=== PATIENT | female | born 2000 | race Two or more races ===

== ENCOUNTER 2020-10-19 16:40 | Outpatient (CLI) | payer MEDICAID ==
[~2020-10-19] VITALS: Ht 160 cm; Wt 60.9 kg
[2020-10-19 17:29] LABS: BASOPHILS % (AUTO) 0 % (0-1); EOSINOPHILS % (AUTO) 1 % (1-7); LYMPHOCYTES % (AUTO) 15 % (22-44); MEAN CORPUSCULAR HEMOGLOBIN 29.3 pg (27.0-34.8); MEAN CORPUSCULAR HGB CONC 33.9 g/dL (32.4-35.8); MEAN PLATELET VOLUME 10.4 fL (7.4-10.4); MONOCYTES % (AUTO) 6 % (2-9); NEUTROPHILS % (AUTO) 78 % (42-75); PLATELET COUNT 143 x10^3/uL (130-400); RED BLOOD COUNT 3.54 x10^6/uL (3.82-5.3); RED CELL DISTRIBUTION WIDTH 13.5 % (9.6-15.2)
[2020-10-19] MEDS ORDERED: LACTATED RINGERS 1,000 ML IVBOLUS ONE (17:30)
[2020-10-19 17:31] LABS: MD NO
[2020-10-19 17:34] VITALS: BP 100/57
[2020-10-19 17:39] LABS: ALBUMIN 2.8 g/dL (3.4-5.0); ANION GAP 6 mmol/L (5-15); CHLORIDE 107 mmol/L (98-107)
[2020-10-19 17:42] LABS: ALANINE AMINOTRANSFERASE 18 U/L (12-78); ALKALINE PHOSPHATASE 90 U/L (45-117); BILIRUBIN,TOTAL 0.4 mg/dL (0.2-1.0); CREATININE 0.34 mg/dL (0.55-1.02); TOTAL PROTEIN 6.8 g/dL (6.4-8.2)
[2020-10-19 18:00] LABS: MICROSCOPIC INDICATED
[2020-10-19] MEDS ORDERED: LACTATED RINGERS 1,000 ML IV SCH (18:30)
[2020-10-19] MEDS ORDERED: PREN1TAB10 PO (18:39)
[2020-10-19] MEDS ORDERED: ASPI-963 PO (18:39)
[2020-10-19] MEDS ORDERED: FERR324T18 PO (18:39)
== END 2020-10-19 19:15 | disposition home or self-care (01) ==
LOC: LDOP 16:40
PROVIDERS: ATTEND Obstetrics & Gynecology
DX: O26.892 Other specified pregnancy related conditions, second trimester (principal); R19.7 Diarrhea, unspecified; R10.9 Unspecified abdominal pain; Z3A.26 26 weeks gestation of pregnancy
CPT/HCPCS: 36415; 59025; 80053; 81001; 85025; 87086; 96360; 96361; J7120

== ENCOUNTER 2020-11-26 09:23 | Emergency (ER) | payer BC, MEDICAID ==
[~2020-11-26] VITALS: Ht 157.5 cm; Wt 63.1 kg
[~2020-11-26 09:23] MED LIST: ASPI-963 PO; FERR324T18 PO; PREN1TAB10 PO
[2020-11-26 09:43] VITALS: BP 100/53
--- NOTE | 2020-11-26 11:59 | NUR ---
science job titles: Pt ambulatory to room from lobby at this time.
[2020-11-26 12:37] LABS: ALBUMIN 2.8 g/dL (3.4-5.0); ANION GAP 7 mmol/L (5-15); BASOPHILS % (AUTO) 1 % (0-1); CALCIUM 8.5 mg/dL (8.5-10.1); CHLORIDE 109 mmol/L (98-107); CREATININE 0.33 mg/dL (0.55-1.02); EOSINOPHILS % (AUTO) 1 % (1-7); LYMPHOCYTES % (AUTO) 14 % (22-44); MEAN CORPUSCULAR HEMOGLOBIN 28.4 pg (27.0-34.8); MEAN CORPUSCULAR HGB CONC 32.9 g/dL (32.4-35.8); MEAN PLATELET VOLUME 11.3 fL (7.4-10.4); MONOCYTES % (AUTO) 6 % (2-9); NEUTROPHILS % (AUTO) 80 % (42-75); PLATELET COUNT 169 x10^3/uL (130-400); RED BLOOD COUNT 3.74 x10^6/uL (3.82-5.3); RED CELL DISTRIBUTION WIDTH 13.5 % (9.6-15.2)
--- NOTE | 2020-11-26 13:23 | NUR ---
This RN called L&D for FHT assessment at approx 1230
--- NOTE | 2020-11-26 13:24 | NUR ---
Awaiting FHT assessment from L&D. Then pt to be d/c'd. Report to TULIO Lopez, to assume full care.
--- NOTE | 2020-11-26 13:50 | NUR ---
Task rn: L/d nurse to bedside for heart tones: average HR 145 ERP made aware Leading edge of cellulitus encircled/times with skin marker to d/c shortly
== END 2020-11-26 14:30 | disposition home or self-care (01) ==
LOC: ED 13:45
DX: O26.893 Other specified pregnancy related conditions, third trimester (principal); L03.113 Cellulitis of right upper limb; Z3A.32 32 weeks gestation of pregnancy
CPT/HCPCS: 36415; 80048; 82040; 85025; 99283

== ENCOUNTER 2020-11-26 21:21 | Emergency (ER) | payer MEDICAID ==
[~2020-11-26] VITALS: Ht 160 cm; Wt 63.0 kg
--- NOTE | 2020-11-26 21:44 | NUR ---
CC OF WORSENING INFECTION, PT BELIEVES TO BE FROM SPIDER BITE. PT SEEN HERE THIS AM, REDNESS STARTED ON WRIST AND SPREAD UP ARM IN A LINE. OUTLINED DONE THIS AM, NOW PT RETURNS WITH REDNESS SPREADING OUTSIDE OF MARKED LINES AND HIGHER ON ARM. PT REPORTS PAIN WELL AND STATES SHE TOOK 2 DOSES OF HER ABX SO FAR. PT ALSO REPORTS HIVES RETURNING. NO HIVES NOTED AT THIS TIME BY RN. SO AT BEDSIDE
[2020-11-26] MEDS ORDERED: DIPHENHYDRAMINE 50 MG/ML, 1ML ONE (21:54)
[2020-11-26] MEDS ORDERED: DIPHENHYDRAMINE 50 MG/ML, 1ML IVPush ONE (22:00)
[2020-11-26 22:33] LABS: BASOPHILS % (AUTO) 1 % (0-1); EOSINOPHILS % (AUTO) 2 % (1-7); LYMPHOCYTES % (AUTO) 19 % (22-44); MEAN CORPUSCULAR HEMOGLOBIN 28.8 pg (27.0-34.8); MEAN CORPUSCULAR HGB CONC 33.8 g/dL (32.4-35.8); MEAN PLATELET VOLUME 11.2 fL (7.4-10.4); MONOCYTES % (AUTO) 8 % (2-9); NEUTROPHILS % (AUTO) 71 % (42-75); PLATELET COUNT 157 x10^3/uL (130-400); RED BLOOD COUNT 3.53 x10^6/uL (3.82-5.3)
[2020-11-26 22:43] LABS: ALBUMIN 2.6 g/dL (3.4-5.0); ANION GAP 8 mmol/L (5-15); CALCIUM 8.2 mg/dL (8.5-10.1); CHLORIDE 108 mmol/L (98-107)
[2020-11-26 23:00] VITALS: BP 92/59
== END 2020-11-26 23:41 | disposition home or self-care (01) ==
LOC: ED 22:41
DX: O26.893 Other specified pregnancy related conditions, third trimester (principal); T63.481A Toxic effect of venom of other arthropod, accidental (unintentional), initial encounter; I89.1 Lymphangitis; Y92.89 Other specified places as the place of occurrence of the external cause; Z3A.37 37 weeks gestation of pregnancy
CPT/HCPCS: 36415; 80048; 82040; 85025; 87040; 96372; 99283; J1200

== ENCOUNTER 2020-12-26 14:01 | Outpatient (CLI) | payer BC, MEDICAID ==
[~2020-12-26] VITALS: Ht 160 cm; Wt 64.1 kg
[2020-12-26 15:05] VITALS: BP 101/57
[2020-12-26 15:07] LABS: MICROSCOPIC INDICATED
== END 2020-12-26 16:08 | disposition home or self-care (01) ==
LOC: LDOP 14:01
PROVIDERS: ATTEND Obstetrics & Gynecology
DX: O26.893 Other specified pregnancy related conditions, third trimester (principal); R10.9 Unspecified abdominal pain; Z3A.36 36 weeks gestation of pregnancy
CPT/HCPCS: 59025; 81001; 84112; 87086

== ENCOUNTER 2021-01-08 08:53 | Outpatient (CLI) | payer BC, MEDICAID ==
[~2021-01-08] VITALS: Ht 160 cm; Wt 63.6 kg
[2021-01-08 08:58] VITALS: BP 96/53
[2021-01-08 09:27] LABS: MICROSCOPIC INDICATED
[2021-01-08 10:22] LABS: BASOPHILS % (AUTO) 1 % (0-1); EOSINOPHILS % (AUTO) 1 % (1-7); LYMPHOCYTES % (AUTO) 12 % (22-44); MEAN CORPUSCULAR HEMOGLOBIN 27.7 pg (27.0-34.8); MEAN CORPUSCULAR HGB CONC 33.2 g/dL (32.4-35.8); MEAN PLATELET VOLUME 11.2 fL (7.4-10.4); MONOCYTES % (AUTO) 6 % (2-9); NEUTROPHILS % (AUTO) 81 % (42-75); PLATELET COUNT 150 x10^3/uL (130-400); RED BLOOD COUNT 3.73 x10^6/uL (3.82-5.3); RED CELL DISTRIBUTION WIDTH 14.2 % (9.6-15.2)
[2021-01-08 10:31] LABS: ALANINE AMINOTRANSFERASE 14 U/L (12-78); ALBUMIN 2.4 g/dL (3.4-5.0); ANION GAP 4 mmol/L (5-15); CALCIUM 8.1 mg/dL (8.5-10.1); CHLORIDE 109 mmol/L (98-107); CREATININE 0.33 mg/dL (0.55-1.02)
[2021-01-08 10:33] LABS: ALKALINE PHOSPHATASE 322 U/L (45-117); BILIRUBIN,TOTAL 0.5 mg/dL (0.2-1.0); TOTAL PROTEIN 6.7 g/dL (6.4-8.2)
[2021-01-08] MEDS ORDERED: NITR100C56 PO (11:00)
== END 2021-01-08 11:15 | disposition home or self-care (01) ==
LOC: LDOP 08:53
PROVIDERS: ATTEND Obstetrics & Gynecology
DX: O26.893 Other specified pregnancy related conditions, third trimester (principal); R10.9 Unspecified abdominal pain; Z3A.37 37 weeks gestation of pregnancy
CPT/HCPCS: 36415; 59025; 80053; 81001; 85025; 87086

== ENCOUNTER 2021-01-15 18:47 | Outpatient (CLI) | payer BC, MEDICAID ==
[~2021-01-15] VITALS: Ht 160 cm; Wt 65.5 kg
[~2021-01-15 18:47] MED LIST changes: +NITR100C56 PO
[2021-01-15 18:50] VITALS: BP 107/60
== END 2021-01-15 20:00 | disposition home or self-care (01) ==
LOC: LDOP 18:47
PROVIDERS: ATTEND Obstetrics & Gynecology
DX: O26.893 Other specified pregnancy related conditions, third trimester (principal); R10.9 Unspecified abdominal pain; Z3A.38 38 weeks gestation of pregnancy
CPT/HCPCS: 59025

== ENCOUNTER 2021-01-16 05:29 | Inpatient (IN) | payer BC, MEDICAID ==
[~2021-01-16] VITALS: Ht 160 cm; Wt 65.4 kg
[2021-01-16] MEDS: LACTATED RINGERS 1,000 ML IV SCH ×4 (08:00→23:00)
[2021-01-16] MEDS: D5%-LACTATED RINGERS 1,000 ML IV SCH ×2 (08:00→16:00)
[2021-01-16] MEDS ORDERED: PENICILLIN GK 5,000,000 UNITS in DEXTROSE 5% 100 ML IVPB ONE (08:00)
[2021-01-16] MEDS ORDERED: CALCIUM CARBONATE 500 MG TAB.CHEW PO PRN (08:00)
[2021-01-16] MEDS ORDERED: ONDANSETRON 2MG/ML, 2ML IVPush PRN (08:00)
[2021-01-16] MEDS ORDERED: TERBUTALINE 1 MG/ML, 1ML IVPush PRN (08:00)
[2021-01-16] MEDS ORDERED: TERBUTALINE 1 MG/ML, 1ML SQ PRN (08:00)
[2021-01-16] MEDS ORDERED: OXYTOCIN 30U/ 0.9% NaCL 500ML 500 ML IV PRN (08:00)
[2021-01-16] MEDS ORDERED: OXYTOCIN 30U/ 0.9% NaCL 500ML 500 ML IV ONE (08:00)
[2021-01-16] MEDS ORDERED: FENTANYL PF 100 MCG/2ML IV PRN (08:00)
[2021-01-16] MEDS ORDERED: NEWBORN KIT ONE (08:11)
[2021-01-16 08:22] LABS: BASOPHILS % (AUTO) 0 % (0-1); EOSINOPHILS % (AUTO) 1 % (1-7); LYMPHOCYTES % (AUTO) 9 % (22-44); MEAN CORPUSCULAR HGB CONC 33.2 g/dL (32.4-35.8); MEAN PLATELET VOLUME 11.1 fL (7.4-10.4); MONOCYTES % (AUTO) 5 % (2-9); NEUTROPHILS % (AUTO) 85 % (42-75); PLATELET COUNT 168 x10^3/uL (130-400); RED BLOOD COUNT 3.85 x10^6/uL (3.82-5.3); RED CELL DISTRIBUTION WIDTH 14.8 % (9.6-15.2)
[2021-01-16] MEDS: FENTANYL PF 100 MCG/2ML IVPush PRN ×2 (11:19→13:28)
[2021-01-16] MEDS: PENICILLIN GK 2,500,000 UNITS in DEXTROSE 5% 100 ML IVPB SCH ×3 (11:40→20:00)
[2021-01-16] MEDS ORDERED: BUPIVACAINE 0.25% ONE (12:21)
[2021-01-16] MEDS ORDERED: FENTANYL PF 500 MCG, BUPIVACAINE/PF 0.5%, 30ML 62.5 ML in SODIUM CHLORIDE 0.9% 177.5 ML EPIDCONT SCH (12:30)
[2021-01-16] MEDS ORDERED: FENTANYL/BUPIV./NS/PF 250 ML EPIDCONT SCH ×2 (12:30→15:00)
[2021-01-16] MEDS ORDERED: LACTATED RINGERS 1,000 ML IVBOLUS PRN (15:00)
[2021-01-16] MEDS ORDERED: EPHEDRINE 50 MG/ML, 1ML IVPush PRN (15:00)
[2021-01-16] MEDS ORDERED: SIMETHICONE 80 MG CHEW TAB PO PRN (17:30)
[2021-01-16] MEDS ORDERED: METOCLOPRAMIDE 5 MG/ML, 2ML IV PRN (17:30)
[2021-01-16] MEDS ORDERED: MAGNESIUM HYDROXIDE 8%, 30ML UDC PO PRN (17:30)
[2021-01-16] MEDS ORDERED: METHYLERGONOVINE 0.2 MG/ML IM PRN (17:30)
[2021-01-16] MEDS ORDERED: MISOPROSTOL 200 MCG TABLET PR PRN (17:30)
[2021-01-16] MEDS ORDERED: ONDANSETRON 2MG/ML, 2ML IV PRN (17:30)
[2021-01-16] MEDS ORDERED: BISACODYL 10 MG SUPP PR PRN (17:30)
[2021-01-16] MEDS ORDERED: RHOGAM FROM BLOOD BANK 1 NOTE EA IM/IV ONE (17:30)
[2021-01-16] MEDS: OXYTOCIN 30U/ 0.9% NaCL 500ML 500 ML IV SCH (17:30)
[2021-01-16] MEDS ORDERED: CARBOPROST TROMETHAMINE 250 MCG/ML, 1ML IM PRN (17:30)
[2021-01-16] MEDS ORDERED: OXYcodone/APAP 5/325MG TABLET PO PRN ×2 (17:30)
[2021-01-16] MEDS ORDERED: ACETAMINOPHEN 325 MG TABLET PO PRN ×2 (17:30)
[2021-01-16] MEDS ORDERED: MEASLES,MUMPS&RUBELLA VACC/PF 0.5 ML SQ-VACC PRN (17:30)
[2021-01-16] MEDS ORDERED: GLYCERIN ADULT SUPP PR PRN (17:30)
[2021-01-16] MEDS ORDERED: DIPH,PERTUSS(ACELL),TET VAC/PF NC IM-VACC PRN (17:30)
[2021-01-16 19:30] VITALS: BP 99/61
[2021-01-16] MEDS: IBUPROFEN 600 MG TABLET PO PRN (20:29)
[2021-01-16] MEDS: DOCUSATE 100 MG CAPSULE PO PRN (20:30)
[2021-01-17] VITALS: BP 97/57
[2021-01-17] MEDS: LACTATED RINGERS 1,000 ML IV SCH
[2021-01-17] MEDS: D5%-LACTATED RINGERS 1,000 ML IV SCH
[2021-01-17] MEDS: PENICILLIN GK 2,500,000 UNITS in DEXTROSE 5% 100 ML IVPB SCH
[2021-01-17 00:57] LABS: BASOPHILS % (AUTO) 0 % (0-1); EOSINOPHILS % (AUTO) 0 % (1-7); LYMPHOCYTES % (AUTO) 7 % (22-44); MEAN CORPUSCULAR HEMOGLOBIN 27.3 pg (27.0-34.8); MEAN CORPUSCULAR HGB CONC 32.9 g/dL (32.4-35.8); MEAN PLATELET VOLUME 12.1 fL (7.4-10.4); MONOCYTES % (AUTO) 4 % (2-9); NEUTROPHILS % (AUTO) 88 % (42-75); PLATELET COUNT 167 x10^3/uL (130-400); RED BLOOD COUNT 3.81 x10^6/uL (3.82-5.3)
[2021-01-17] MEDS: OXYTOCIN 30U/ 0.9% NaCL 500ML 500 ML IV SCH (03:30)
[2021-01-17 04:00] VITALS: BP 97/60
[2021-01-17] MEDS: DOCUSATE 100 MG CAPSULE PO PRN (07:41)
[2021-01-17 08:00] VITALS: BP 103/54
[2021-01-17] MEDS ORDERED: IBUP-1222 PO (08:16)
[2021-01-17] MEDS ORDERED: PRENATAL VIT/IRON/FA 1 EACH TABLET PO SCH (09:00)
[2021-01-17] MEDS: IBUPROFEN 600 MG TABLET PO PRN (10:18)
== END 2021-01-17 18:00 | disposition home or self-care (01) | DRG 806 ==
LOC: LDOP 05:29 → LDIP 07:47 → 2NW 19:15
PROVIDERS: ADMIT Obstetrics & Gynecology; ATTEND Obstetrics & Gynecology
PROC: 10E0XZZ Delivery of Products of Conception, External Approach (ICD-10-PCS; principal; 2021-01-16)
PROC: 0W8NXZZ Division of Female Perineum, External Approach (ICD-10-PCS; 2021-01-16)
PROC: 3E0R3BZ Introduction of Anesthetic Agent into Spinal Canal, Percutaneous Approach (ICD-10-PCS; 2021-01-16)
PROC: 00HU33Z Insertion of Infusion Device into Spinal Canal, Percutaneous Approach (ICD-10-PCS; 2021-01-16)
DX: O69.81X0 Labor and delivery complicated by cord around neck, without compression, not applicable or unspecified (principal); O99.12 Other diseases of the blood and blood-forming organs and certain disorders involving the immune mechanism complicating childbirth; Z37.0 Single live birth; O98.52 Other viral diseases complicating childbirth; D69.59 Other secondary thrombocytopenia; O99.02 Anemia complicating childbirth; D50.9 Iron deficiency anemia, unspecified; Z3A.39 39 weeks gestation of pregnancy; Z20.822 Contact with and (suspected) exposure to COVID-19; Z91.011 Allergy to milk products; B00.9 Herpesviral infection, unspecified
CPT/HCPCS: 36415; 76818; 85025; 86592; 86780; 86850; 86900; 87635; 89060; G0378; J2540; J3010; J2590; J7120; Q0114